=== PATIENT | female | born 1990 | race Caucasian/White ===

== ENCOUNTER 2023-07-01 19:07 | Emergency (ER) | payer SELFPAY ==
[2023-07-01 19:09] VITALS: BP 118/74; PULSE 90; RESP 20; TEMP 36.6; O2SAT 100; BMI 37.8
--- NOTE | 2023-07-01 19:25 | XR_ITS ---
PROCEDURE INFORMATION: Exam: XR Right Foot Exam date and time: 07/01/2023 7:51 PM Age: 32 years old Clinical indication: Injury or trauma; Fall; Blunt trauma; Foot; Right; Additional info: Fall/injury TECHNIQUE: Imaging protocol: Radiologic exam of the right foot. Views: 3 or more views. COMPARISON: No relevant prior studies available. FINDINGS: Bones/joints: Normal. Soft tissues: Normal. IMPRESSION: No acute findings.
--- NOTE | 2023-07-01 19:58 | HMH.EDGENADL ---
Discharge Plan Disposition Chief Complaint: Extremity Injury, Lower Referrals Follow up/Referrals: Provider,Referral, [Primary Care Provider] - See instructions Kashmir Vasquez DO [Staff Physician] - See instructions Activity Restrictions/Add. Instructions Additional Instructions/Restrictions: At this time it was felt you are safe to be discharged home. If new or worsening symptoms please do not hesitate to return the emergency department. If symptoms persist please call and schedule appoint with Dr. Vasquez as you are able Clinical Impressions Clinical Impression: Foot trauma Discharge ED Provider: Mk Conway General Adult HPI General Chief complaint: Extremity Injury, Lower Stated complaint: [id number] Rt foot inj Time Seen by Provider: 07/01/23 19:29 Mode of Arrival: Wheelchair Source of Information: Patient Limitations: No Limitations Description of Symptoms (Recalled from ER Triage Doc. by RN): pt fell while horseplaying around and landed on right foot wrong. pt states it hurts across the top of foot and she cant bear weight without pain History of Present Illness HPI narrative: Patient is a 32-year-old female with no pertinent past medical history presents emergency department for evaluation of traumatic injuries sustained at home. Patient was horse playing at home when she felt a pop and significant pain in her right midfoot with limited ability to bear weight. Denies other traumatic injuries. No other acute complaints at this time. Related Data Allergies Allergy/AdvReac Type Severity Reaction Status Date / Time No Known Allergies Allergy Verified 07/01/23 19:25 [facility] Disclaimer: The information contained in this section may have been updated after the patient was seen, as this information can be updated by other users. Social History Smoking Status: Current every day smoker alcohol intake: never current occupational status: other Travel in the last 8 weeks: None ROS Obtained: Yes Systems reviewed as appropriate & no additional complaints except as documented Physical Exam General General appearance: alert and in no apparent distress Head Head exam: atraumatic and normocephalic Eye Eye exam: Present PERRL and EOMI ENT ENT exam: Present mucous membranes moist Neck Neck exam: Present normal inspection Chest Chest inspection: Present normal inspection and symmetric chest wall rise Respiratory Respiratory exam: Absent respiratory distress Cardiovascular Cardiovascular exam: Present regular rate and normal rhythm Abdominal Exam Abdominal exam: Present soft Extremities Exam Extremities exam: Present normal inspection and other (Palpable right dorsal pedal pulse, tenderness over the midfoot, capillary fill preserved in all the digits of the foot, no tenderness over the medial or lateral malleolus.) Neurological Exam Neurological exam: Present alert Psychiatric Psychiatric exam: Present normal affect Skin Skin exam: Present warm and dry Medical Decision Making Clark Inquiry Pt receiving controlled substance: No Vital Signs: 07/01/23 19:09 Temperature 97.8 F Temperature Source Oral Pulse Rate [Right Radial] 90 Respiratory Rate 20 Blood Pressure [Right Arm] 118/74 Blood Pressure Mean [Right Arm] 88 02 Sat by Pulse Oximetry 100 Oxygen Delivery Method Room Air Orders (Tests/Meds): ED MEDICATIONS Discontinued Medications Generic Name Dose Route Start Last Admin Trade Name Freq PRN Reason Stop Dose Admin Acetaminophen 1,000 mg 07/01/23 19:58 07/01/23 20:07 Acetaminophen 500mg Tab PO 07/01/23 19:59 1,000 mg ONCE ONE Administration Ibuprofen 600 mg 07/01/23 19:58 07/01/23 20:07 Ibuprofen 600 Mg Tablet PO 07/01/23 19:59 600 mg ONCE ONE Administration ORDERS Category Date Time Status XR foot RT min 3V Stat Exams 07/01/23 19:25 Completed Medical Decision Narrative: In summary patient is a 30-year-old female past medical history described above presents emergency department for evaluation of traumatic foot pain. Based on history physical exam differential includes musculoskeletal strain, fracture, among others. No tenderness over the medial or lateral malleolus therefore x-ray of ankle was considered but will be deferred. Limited traumatic evaluation will be conducted with x-ray of the foot. Initial interventions include Tylenol and ibuprofen. X-ray informally interpreted by me, no significant displaced fracture. Formal read shows no acute findings. Given the possibility of ligamentous injury patient will be placed in boot, given crutches, weightbearing as tolerated will follow-up with Dr. Vasquez. Patient is appropriate for discharge at this time. Critical Care Critical Care Time Critical Care Time: No
[2023-07-01] MEDS: IBUPROFEN 600 MG TABLET PO (20:07)
[2023-07-01] MEDS: ACETAMINOPHEN 500MG TAB 1000 MG PO (20:07)
[2023-07-01 20:38] VITALS: BP 110/78; PULSE 80; RESP 20; TEMP 36.7; O2SAT 98
== END 2023-07-01 20:39 | disposition home or self-care (01) ==
PROVIDERS: Emergency Provider Emergency Medicine
DX: M79.671 Pain in right foot (principal); F17.200 Nicotine dependence, unspecified, uncomplicated; W19.XXXA Unspecified fall, initial encounter
CPT/HCPCS: 73630; 99283

== ENCOUNTER 2024-12-10 08:36 | Emergency (ER) | payer SELFPAY ==
--- NOTE | 2024-12-10 08:40 | ECG_ITS ---
APPROVED REPORT Exam: Resting ECG HR:69 bpm ECG Measurements Heart Rate 69 AXES WV 111 P 59 QRSd 81 QRS 76 QT 357 T 23 QTc 376 Conclusion SINUS RHYTHM WITH SHORT WV INTERVAL NONSPECIFIC T-WAVE ABNORMALITY BORDERLINE ECG UNCONFIRMED REPORT Electronically signed by : LUIZ TELLEZ, 12/11/2024 01:10:26
[2024-12-10 08:44] VITALS: BP 144/88; PULSE 84; RESP 15; TEMP 36.9; O2SAT 100; BMI 34.7
[2024-12-10 08:47] VITALS: BP 144/88; PULSE 84; RESP 15; TEMP 36.9; O2SAT 100
--- NOTE | 2024-12-10 08:56 | XR_ITS ---
FINAL REPORT CLINICAL HISTORY: Shortness of breath, chest pain COMPARISON: None FINDINGS: The heart size is normal. The mediastinum is normal. There is no focal infiltrate or edema. There are no pleural effusions. There is no pneumothorax. There is no osseous abnormality. IMPRESSION: No acute cardiopulmonary process Reviewed, Interpreted and Dictated by Oscar Tong MD Transcribed by Tanya Arshad Authenticated and [facility]
--- OUTSIDE RECORDS SUMMARY | 2024-12-10 08:56 | XMS_ITS | Clinical Summary ---
Author Organization [facility] Address [address] [place] [id number] Phone Care Team Providers Care Mandarin Chinese Teacher Name Role Phone Unavailable Unavailable Conditions or Problems No information available. Medications Medication Instructions Start Date Stop Date Generic Name NDC Provider AMOXICILLIN 500 MG CAPS Take 1 capsule by mouth every eight hours 2 amoxicillin [id number] Les Albarado DMD Medications Administered No information available. Allergies, Adverse Reactions, Alerts No information available. Results No information available. Plan of Care No information available. Procedures No information available. Vital Signs No information available. Immunizations No information available. Advance Directives No information available.
--- OUTSIDE RECORDS SUMMARY | 2024-12-10 08:57 | XMS_ITS | Clinical Summary ---
Author Organization [facility] Address [address] [place] [id number] Care Team Providers Care Certified Vehicle Fire Investigator Name Role Phone Pcp, No Primary Care Provider [phone] Source Comments This information has been disclosed to you from confidential records protectedfrom disclosure by state law. You shall make no further disclosure of thisinformation without the specific, written, and informed release of theindividual to whom it pertains, or as otherwise permitted by law. A generalauthorization for the release of medical or other information is not sufficientfor the purposes of therelease of HIV test results or diagnoses. [id number] Allergies No known active allergies Social History Tobacco Use Types Packs/Day Years Used Date Smoking Tobacco: Every Day Cigarettes E-cigs/Vape Smokeless Tobacco: Never Tobacco Cessation:Ready to Q uit: Not Asked; Counseling Given: Not Answered Alcohol Use Standard Drinks/Week Comments Yes 0 (1 standard drink = 0.6 oz pur e alcohol) rare Comments Unknown Sex and Gender Information Value Date Recorded Sex Assigned at Not on file Legal Sex Female 9:23 AM EDT Gender Identity Not on file Sexual Orientation Not on file Last Filed Vital Signs Vital Sign Reading Time Taken Comments Blood Pressure 123/70 02/26/2024 9:36 AM EDT Pulse 59 02/26/2024 9:36 AM EDT Temperature 37.1 C (98.7 F) 02/26/2024 9:36 AM EDT Respiratory Rate 14 02/26/2024 9:36 AM EDT Oxygen Saturation 100% 02/26/2024 9:36 AM EDT Inhaled Oxygen Concentration 100% 02/26/2024 9 :36 AM EDT Weight - - Height - - Body Mass Index - - Plan of Treatment Health Maintenance Due Date Last Done Comments Tobacco Cessation Readiness 1990 Alcohol Misuse Screening 2008 Depression Screening 2008 HIV Screening 2008 Immunization: DTaP/Tdap/Td (1 - Tdap) 2009 Immunization: Hepatitis B (1 of 3 - 19+ 3-dose series) 2009 Immunization: Pneumococcal (1 of 2 - PCV) 2009 Cervical Cancer Screening/Pa p Smear (MyChart) 2020 Immunization: COVID-19 ( season) 2024 03/15/2021, 02/21/2021 Immunization: Influenza (MyC adler) (Season Ended) 2025 Hepatitis C Screening (MyChart) Completed 4 Procedures Procedure Name Priority Date/Time Associated Diagnosis Comments ED HCV AB REFLEX TO HCV QUANT Routine 02/26/2024 12:04 PM EDT from Last 3 Months or Most Recently Relevant to Health Maintenance Results * (ABNORMAL) ED HCV Ab Reflex To HCV Quant (02/26/2024 12:04 PM EDT) HCV Ab Nonreactive Nonreactive 02/26/2024 2:47 PM EDT HEALTH LAB Comment:Health Department no tified in accordance with reportable infectious disease guidelines. HCVAB Number 0.87(H) 0.00 - 0.79 S/CO 02/26/2024 2:47 PM EDT [facility] Serum 02/26/2024 12:0 4 PM EDT 02/26/2024 12:33 PM EDT us Jennifer [facility] BLOOD ORDERABLES Final Res ult [facility] [address] [place] [address], [place] from Last 3 Months or Most Recently Relevant to Health Maintenance Insurance [facility] Care Teams Certified Vehicle Fire Investigator Relationship Specialty Start Date End Date Pcp, No No Address PCP - General 02/26/24
--- OUTSIDE RECORDS SUMMARY | 2024-12-10 08:57 | XMS_ITS | Clinical Summary ---
Author Organization [facility] Address [address] [place] [address] Phone Care Team Providers Care Outside Medical Sales Representative Name Role Phone Temo Daley MD Primary Care Provider Allergies No known active allergies Medications naproxen (NAPROSYN) 500 mg Oral TabletIndication s:Sciatica of right side Take 1 Tablet by mouth 2 times daily (with meals). 60 Tablet 2 06/09/2024 Active LEVOthyroxine (SYNTHROID) 50 mcg Oral TabletIndication s:Hypothyroidism (acquired) Take 1 Tablet by mouth daily. 90 Tablet 3 06/10/2024 Active Active Problems Problem Noted Date Diagnosed Date Hypothyroidism (acquired) 06/10/2024 Obesity, Class II, BMI 35-39.9 06/09/2024 Assessment & Plan (06/09/2024 2:59 PM EST): Orders: HEMOGLOBIN A1C; Future COMPREHENSIVE METABOLIC PANEL; Future CBC WITH DIFF; Future TSH REFLEX; Future LIPID PANEL REFLEX; Future Will screen for obesity related metabolic conditions. Acute cholecystitis 09/06/2021 Surgical History Surgery Date Site/Laterality Comments CHOLECYSTECTOMY 09/07/2021 N/A DAVINCI ROBOTIC CHOLECYSTECTOMY; Surgeon: Tal Cagle MD; Location: ED MAIN OR; Service: General Family History Medical History Relation Name Comments High Blood Pressure Father High Cholesterol Father Cancer Paternal Grandmother Relation Name Status Comments Father Mother Paternal Grandmother Social History Tobacco Use Types Packs/Day Years Used Date Smoking Tobacco: Former Cigarettes 0.5 16 0 07/02/2006 - 07/01/2022 Smokeless Tobacco: Never Tobacco Cessation:Counseling Given: Not Answered Alcohol Use Standard Drinks/Week Comments Yes 0 (1 standard drink = 0.6 oz pur e alcohol) socially Overall Financial Resource Strain (CARDIA) Answe r Date Recorded How hard is it for you to pa y for the very basics like food, housing, medical care, and heating? Not very hard 09/06/2021 PHQ-2 Answer Date Recorded PHQ-2 Total Score 1 06/09/2024 Hunger Vital Sign Answer Date Recorded Within the past 12 months, y ou worried that your food would run out before you got the money to buy more. Never true 09/07/19 22 Within the past 12 months, t he food you bought just didn't last and you didn't have money to get more. Never true 09/06/2021 PRAPARE - Transportation Answer Date Re corded In the past 12 months, has l ack of transportation kept you from medical appointments or from getting medications? No 01/2022 In the past 12 months, has l ack of transportation kept you from meetings, work, or from getting things needed for daily living? No 09/06/2021 Comments No Sex and Gender Information Value Date Recorded Sex Assigned at Not on file Legal Sex Female 11:14 AM EDT Gender Identity Not on file Sexual Orientation Not on file Obstetrics History Last Filed Vital Signs Vital Sign Reading Time Taken Comments Blood Pressure 117/68 06/30/2024 10:14 AM EST Pulse 83 06/30/2024 10:10 AM EST Temperature 37.1 C (98.8 F) 06/30/2024 10:14 AM EST Respiratory Rate 16 06/30/2024 10:10 AM EST Oxygen Saturation 99% 06/30/2024 10:10 AM EST Inhaled Oxygen Concentration - - Weight 84.4 kg (186 lb) 06/30/2024 10:14 AM EST Height 157.5 cm (5' 2 ) 06/30/2024 10:14 AM EST Body Mass Index 34.02 06/30/2024 10:14 AM EST Plan of Treatment Health Maintenance Due Date Last Done Comments DTaP/TDaP/Td (1 - Tdap) 2009 Hepatitis B Vaccine (1 of 3 - 19+ 3-dose series) 2009 Cervical Cancer Screening 12/23/2011 Pap Smear 12/23/2011 HPV/Pap Cotest 2020 COVID-19 Vaccine (2023-2 5 season) 2024 03/15/2021, 02/21/2021 Influenza Vaccine (Season Ended) 2025 Annual Wellness Exam 06/09/2025 06/09/2024 Meningococcal B Vaccine Aged Out No l onger eligible based on patient's age to complete this topic Pneumococcal Vaccine 0-49 Aged Out No longer eligible based on patient's age to complete this topic Goals Goal Patient Goal Type Associated Problems Recent Progress Patient-Stated? Author Maintain a healthy diet, exercise regularly and maintain an ideal body weight General No Temo Daley MD Stay Tobacco Free Lifestyle No Temo Daley MD Insurance [employer] Member Subscriber Plan / Payer (Ef fective 2024-Present) Name:Tracy Herring Relation to Subscriber:Self Name:Tracy Herring Payer ID:Not on file Group ID:Not on file Type:Not on file Address: [address] CHOICE PLUS [employer] Member Subscriber Plan / Payer (Ef fective 2024-Present) Name:Tracy Herring Relation to Subscriber:Self Name:Tracy Herring Payer ID:Not on file Group ID:Not on file Type:Not on file Address: [address] CHOICE PLUS [facility] CHOICE PLUS Care Teams Outside Medical Sales Representative Relationship Specialty Start Date End Date Temo Daley MD [address] [place] [address] [place] [address] PCP - General Family Medicine 06/09/24
--- NOTE | 2024-12-10 08:58 | HMH.EDCP ---
Discharge Plan Disposition Patient Disposition: Home, Self-Care Referrals Follow up/Referrals: Provider,Referral, [Primary Care Provider, Medical] - See instructions Activity Restrictions/Add. Instructions Additional Instructions/Restrictions: No definitive evidence of an acute cardiopulmonary emergency. However it was recommended that we get a second troponin given the duration of her symptoms versus the time of onset of your presentation and you opted to leave prior to that test. Please follow-up with your primary care doctor or cardiology or return to the emergency department with any significant worsening of your symptoms. Clinical Impressions Clinical Impression: Atypical chest pain Print Language Print Language: Pashto Discharge ED Provider: Damaris Dawson HPI General Chief Complaint: Chest Pain Stated Complaint: chest pain Time Seen by Provider: 12/10/24 08:47 Mode of Arrival: Ambulatory Source of Information: Patient Description of Symptoms (Recalled from ER Triage Doc. by RN): patient states she began having stabbing substeranl chest pain radiating down her left arm around 7am, she reports it started as soon as she got out of bed. History of Present Illness HPI narrative: Patient is a 33-year-old female presenting today with chest pain. States the discomfort woke her up around 7 AM. Had some radiation to the left arm no significant dyspnea diaphoresis or exertional component associated with this. Denies any worsening with food or position. No hypercoagulable state or any hormone use from historical standpoint. Denies any lower extremity swelling or hemoptysis or history of DVT or PE. No significant or contributory family history. Related Data Allergies Allergy/AdvReac Type Severity Reaction Status Date / Time No Known Allergies Allergy Verified 07/01/23 19:25 [facility] Disclaimer: The information contained in this section may have been updated after the patient was seen, as this information can be updated by other users. Social History (Updated 07/01/23 @ 20:22 by Mk Conway MD) Smoking Status: Current every day smoker alcohol intake: never current occupational status: other Travel in the last 8 weeks?: None Have you lived/traveled outside US in past 30 days?: No Contact w/someone who lives/traveled outside US past 30 days?: No Exposure to someone with infectious disease in past 14 days?: No Do you have a fever (greater than 100.4 F or 38 C)?: No Have you tested positive for COVID-19?: No Exposed to someone with COVID-19 in past 14 days?: No Do you have a sore throat?: No Do you have a cough?: No Do you have any weakness?: No Do you have any diarrhea?: No Are you experiencing any unusual bleeding?: No Do you have any muscle aches/pain?: No Do you have any abdominal pain?: No Are you experiencing loss of taste or smell?: No ROS Obtained: Yes All systems reviewed & no additional complaints except as documented Physical Exam General General appearance: alert and in no apparent distress Respiratory Respiratory exam: Present normal lung sounds bilaterally; Absent respiratory distress Cardiovascular Cardiovascular exam: Present regular rate and normal rhythm Neurological Exam Neurological exam: Present alert and oriented X3 HEART Score HEART Score HEART Score assessment performed?: Yes History (anamnesis): Slightly suspicious ECG: Normal Age: <45 years Risk factors: No known risk factors Troponin: </= normal limit HEART Score: 0 Critical Care Critical Care Time Critical Care Time: No Medical Decision Making Clark Inquiry Pt receiving controlled substance: No Vital Signs Vital Signs: 12/10/24 08:44 12/10/24 08:47 12/10/24 09:09 Temperature 98.4 F 98.4 F Temperature Source Oral Oral Pulse Rate 84 Pulse Rate [Right Radial] 84 Respiratory Rate 15 15 19 Blood Pressure 144/88 H 126/76 Blood Pressure [Right Arm] 144/88 H Blood Pressure Mean [Right Arm] 106 Blood Pressure Source Automatic Cuff Blood Pressure Source [Right Arm] Automatic Cuff Blood Pressure Position Supine Blood Pressure Position [Right Arm] Sitting 02 Sat by Pulse Oximetry 100 100 Oxygen Delivery Method Room Air Room Air 12/10/24 10:00 12/10/24 10:10 Temperature 98.1 F Temperature Source Pulse Rate 53 L 63 Pulse Rate [Right Radial] Respiratory Rate 15 15 Blood Pressure 131/78 131/78 Blood Pressure [Right Arm] Blood Pressure Mean [Right Arm] Blood Pressure Source Blood Pressure Source [Right Arm] Blood Pressure Position Blood Pressure Position [Right Arm] 02 Sat by Pulse Oximetry 100 Oxygen Delivery Method Room Air Lab Data Lab results reviewed: Yes I reviewed the patient's lab results. Labs: Lab Results 12/10/24 09:05: WBC 7.9, RBC 4.93, Hgb 13.5, Hct 42.3, MCV 85.8, MCH 27.4, MCHC 31.9, RDW 13.4, Plt Count 319, MPV 9.9, Neut % (Auto) 65.9, Lymph % (Auto) 20.9, [place] % (Auto) 6.7, Eos % (Auto) 4.8, Baso % (Auto) 1.1, Neut # (Auto) 5.2, Lymph # (Auto) 1.7, [place] # (Auto) 0.5, Eos # (Auto) 0.4, Baso # (Auto) 0.1, Sodium 138, Potassium 4.0, Chloride 108 H, Carbon Dioxide 26, Anion Gap 8.0, BUN 17, Creatinine 0.80, Estimated Creat Clear 132, Estimated GFR 83, Est GFR ( Amer) 100, Glucose 109 H, Calcium 9.5, Total Bilirubin 0.2, AST 33, ALT 45, Alkaline Phosphatase 71, Troponin I < 0.01, Total Protein 7.4, Albumin 4.4, Globulin 3.0, Albumin/Globulin Ratio 1.5, Lipase 112 12/10/24 09:05 12/10/24 09:05 Response Orders (Tests/Meds): ED MEDICATIONS Discontinued Medications Generic Name Dose Route Start Last Admin Trade Name Freq PRN Reason Stop Dose Admin Belladonna Alkaloids 60 ml 12/10/24 08:55 12/10/24 09:19 Belladonna Alkaloids 60 Ml Ml PO 12/10/24 08:56 Not Given ONCE ONE ORDERS Category Date Time Status CXR --portable [XR chest portable] Stat Exams 12/10/24 08:56 Taken CBC w/Auto Diff [Complete Blood Count Auto Diff] Stat Lab 12/10/24 09:05 Completed CMP [Comprehensive Metabolic Panel] Stat Lab 12/10/24 09:05 Completed HIV Combo Stat Lab 12/10/24 09:05 Received Hepatitis C Ab Qual. W/ RFX Stat Lab 12/10/24 09:05 Received Lipase Stat Lab 12/10/24 09:05 Completed Trop I [Troponin I] Stat Lab 12/10/24 09:05 Completed ECG Data Tracing #1: Attestation: I reviewed this ECG and interpreted as documented below: ECG Narrative: Ventricular to 69 normal sinus rhythm no acute ischemic changes noted normal axis no significant conduction abnormalities MDM Narrative Medical Decision Narrative: Very well-appearing nontoxic 33-year-old female without any significant comorbidities who has a very low heart score and a normal nonischemic EKG presented today with atypical chest pain. Differential includes gastrointestinal causes, acute coronary syndrome etc. She has pulmonary embolism rule out criteria negative will not proceed with a D-dimer or CT PE. Given the fact that she is here with only a few hours of symptoms she will require serial troponins this has been told her she has been placed in ED observation status assuming the initial workup is negative. Reassessment the patient is very comfortable and well-appearing on my reassessment initial workup is negative patient was placed in ED opts for troponin undetectably low again patient is PERC negative. I discussed with the patient that she needed a serial troponin given the duration of her symptoms versus the time of onset of her presentation but she did not want to stay for that. She understood that there is some risk in leaving that could include significant mobility and but this is very low likelihood. I told her I was comfortable with her leaving and following up with her primary care doctor and or with a juice bar team member and returning with any significant worsening of her symptoms. The remains diagnostic uncertainty with exactly what was causing her symptoms but patient was discharged in stable condition no definitive evidence of a cardiopulmonary emergency.
[2024-12-10 09:09] VITALS: BP 126/76; RESP 19
[2024-12-10 09:14] LABS: Basophils # 0.1 K/mm3 (0-0.2); Basophils % 1.1 % (0.1-2.0); Eosinophils # 0.4 Kmm3 (0.0-0.4); Eosinophils % 4.8 % (0.1-12.0); Hematocrit 42.3 % (37.0-47.0); Hemoglobin 13.5 g/dL (12.2-16.2); Immature Granulocytes # 0.05 10^3uL; Immature Granulocytes % 0.6 %; Lymphocytes # 1.7 K/mm3 (0.7-4.5); Lymphocytes % 20.9 % (10-50); Mean Corpuscular HGB Conc 31.9 g/dL (31.8-35.4); Mean Corpuscular Hemoglobin 27.4 pg (27.0-31.2); Mean Corpuscular Volume 85.8 fl (81-99); Mean Platelet Volume 9.9 fl (7.4-10.4); Monocytes # 0.5 K/mm3 (0.1-1.0); Monocytes % 6.7 % (1.7-9.3); Neutrophils # 5.2 K/mm3 (1.8-7.8); Neutrophils % 65.9 % (37.0-80.0); Nucleated Red Blood Cells # 0 10^3/uL; Nucleated Red Blood Cells % 0 %; Platelet Count 319 K/mm3 (142-424); Red Blood Count 4.93 M/mm3 (4.20-5.40); Red Cell Distribution Width 13.4 % (11.5-17.5); Red Cell Distribution Width-SD 41.7 fL; White Blood Count 7.9 K/mm3 (4.8-10.8)
[2024-12-10 09:25] LABS: Chloride 108 mmol/L (98-107); Sodium 138 mmol/L (136-145)
[2024-12-10 09:28] LABS: Alanine Aminotransferase 45 U/L (12-78); Alkaline Phosphatase 71 U/L (38-126); Aspartate Amino Transferase 33 U/L (14-36); Bilirubin,Total 0.2 mg/dl (0.2-1.3); Blood Urea Nitrogen 17 mg/dl (7-17); Carbon Dioxide 26 mmol/L (22.0-30.0); Creatinine Clearance Estimated 132 mL/min (50-200); Estimated Glomerular Filt Rate 83 ml/min (>60); GFR (African American) 100 ML/MIN (>60); Lipase 112 U/L (23-300); Total Protein,Serum 7.4 g/dl (6.3-8.2)
[2024-12-10 09:29] LABS: Calcium 9.5 mg/dl (8.4-10.2); Glucose 109 mg/dl (74-100)
--- NOTE | 2024-12-10 09:34 | PC.NURSE ---
rounded on patient, no needs voiced at this time.
[2024-12-10 09:43] LABS: Troponin I < 0.01 ng/ml (0.00-0.034)
[2024-12-10 10:00] VITALS: BP 131/78; PULSE 53; RESP 15; O2SAT 100
--- NOTE | 2024-12-10 10:09 | PC.NURSE ---
in room talking with patient at this time.
[2024-12-10 10:10] VITALS: BP 131/78; PULSE 63; RESP 15; TEMP 36.7; O2SAT 100
[2024-12-10 10:12] LABS: Albumin Level 4.4 g/dl (3.5-5.0); Albumin/Globulin Ratio 1.5 (1.1-1.8)
[2024-12-10 10:26] LABS: Hepatitis C Ab Qual. W/ RFX NEGATIVE (Negative)
[2024-12-11 04:58] LABS: HIV Combo NEGATIVE (Negative)
== END 2024-12-10 10:22 | disposition home or self-care (01) ==
PROVIDERS: Emergency Provider Student in an Organized Health Care Education/Training Program
DX: R07.9 Chest pain, unspecified (principal); F17.210 Nicotine dependence, cigarettes, uncomplicated
CPT/HCPCS: 71045; 80053; 80074; 83690; 84484; 85025; 87389; 93005; 99284